=== PATIENT | female | born 2000 | race Caucasian/White ===

== ENCOUNTER 2023-05-03 17:18 | Emergency (ER) | payer OTHER ==
[~2023-05-03] VITALS: Ht 157.5 cm; Wt 47.6 kg
[2023-05-03] MEDS ORDERED: CEPH500C2 PO (17:59)
[2023-05-03] MEDS ORDERED: IBUP-1953 PO (17:59)
[2023-05-03 18:09] VITALS: BP 124/67; TEMP 98.7; O2SAT 100
== END 2023-05-03 18:10 | disposition home or self-care (01) ==
LOC: ER 17:27
DX: K04.7 Periapical abscess without sinus (principal)